=== PATIENT | female | born 1985 | race Caucasian/White ===

== ENCOUNTER 2017-06-16 19:15 | Inpatient (IN) | payer OTHER ==
[~2017-06-16] VITALS: Ht 172.7 cm; Wt 87.0 kg
[~2017-06-16 19:15] MED LIST: HYCET 7.5 MG-3473 ML PO; NUVARING VAGIN1 EACH VAGINAL; ROBAXIN-750750 MG PO; TRAMADOL HCL50 MG PO; XANAX0.5 MG PO
--- NOTE | 2017-06-17 01:20 | PR ---
[facility] [address] [facility] [place], [place] [address] Signed Progress Notes IP Datetime Report Generated by CPJostin: 06/17/2017 01:19 PROGRESS NOTES: [id number] Impression: Normal progression of labor Procedures: Sterile Vag Exam Plan: Continue present management; Anticipate Vaginal Delivery Informed Consent Obtain: Vaginal Delivery; Risks, Benefits and Alternatives Discussed VITAL SIGNS: [id number] Vital Signs: Reviewed EXAM: [id number] Dilatation: 9.0 Effacement: 100 Station: 0 Uterine Contractions: every two minutes MEMBRANES: [id number] Membrane Status: Ruptured Amniotic Fluid Color: Clear Comments: patient resting comfortably with epidural in place Fetus A: [id number] FHR Baseline: 150's Variability: Moderate 6-25bpm Accelerations: 15X15 Decelerations: Variable FHR Category: Category I Presentation: Vertex Comments on Fetus A: reactive Fetus B: [id number] Signing Physician: Karen Pham MD CC: *Electronically Signed* 06/17/17 0119 KAREN PHAM MD PATIENT NAME: JANNETH FAROOQ ANDREW PROGRESS NOTE DATE OF : 89 PHYSICIAN: KAREN PHAM MD RPT #: [id number] REPORT IS CONFIDENTIAL AND NOT TO BE RELEASED WITHOUT AUTHORIZATION
--- NOTE | 2017-06-19 09:57 | PR ---
[facility] [address] [facility] [place], [place] [address] Signed PP Progress Notes Datetime Report Generated by CPN: 06/19/2017 09:57 SUBJECTIVE: [id number] Pain: Within normal limits Nausea/Vomiting: Denies Flatus: Yes Bowel Movement: No Vital Signs: [id number] Vital Signs: Reviewed EXAM: [id number] Cardiovascular: Normal Respiratory: Normal Abdomen/Uterus: Normal Lochia: Normal Vulva/Perineum: Normal Breasts: Normal CVA Tenderness: Normal Extremities: Normal Incision: Not Applicable Progress: Normal Exam Comments: Some difficulty with latching. IMPRESSION/PLAN/PROCEDURES: [id number] Impression: Normal progression Plan: Discharge Procedures: None Progress Notes: patient doing well . anticipate d/c home today Signing Physician: Karen Pham MD CC: *Electronically Signed* 06/19/17 0957 KAREN PHAM MD PATIENT NAME: JANNETH FAROOQ PROGRESS NOTE DATE OF : 89 PHYSICIAN: KAREN PHAM MD RPT #: [id number] REPORT IS CONFIDENTIAL AND NOT TO BE RELEASED WITHOUT AUTHORIZATION
== END 2017-06-19 13:40 | disposition home or self-care (01) | DRG 775 ==
LOC: FBCO 19:15 → FBC 19:54
PROVIDERS: ADMIT Obstetrics & Gynecology
PROC: 0KQM0ZZ Repair Perineum Muscle, Open Approach (ICD-10-PCS; principal; 2017-06-17)
PROC: 10E0XZZ Delivery of Products of Conception, External Approach (ICD-10-PCS; principal; 2017-06-17)
PROC: 3E0R3BZ Introduction of Anesthetic Agent into Spinal Canal, Percutaneous Approach (ICD-10-PCS; 2017-06-17)
PROC: 00HU33Z Insertion of Infusion Device into Spinal Canal, Percutaneous Approach (ICD-10-PCS; 2017-06-17)
DX: O42.02 Full-term premature rupture of membranes, onset of labor within 24 hours of rupture (principal); Z3A.40 40 weeks gestation of pregnancy; Z37.0 Single live birth; O77.0 Labor and delivery complicated by meconium in amniotic fluid; O70.1 Second degree perineal laceration during delivery
CPT/HCPCS: 01960; 82565; 84450; 84520; 84550; 85025; J2590; J2795; J7120

== ENCOUNTER 2021-12-24 07:46 | Inpatient (IN) | payer OTHER ==
--- NOTE | 2021-12-24 15:33 | NUR ---
RT COLLECTED RAPID COVID 19 SWAB AT THIS TIME WITH NO COMPLICATIONS.
--- NOTE | 2021-12-24 16:36 | PR ---
[facility] [address] [facility] [place] [address] Signed Progress Notes IP Datetime Report Generated by CPN: 12/24/2021 16:36 PROGRESS NOTES: [id number] Impression: Normal Progression of Labor; Reassuring Heart Rate Plan: Anticipate Vaginal Delivery Informed Consent Obtain: Vaginal Delivery VITAL SIGNS: [id number] Vital Signs: Reviewed VS Notable Details: Inital BP elevated; normal BP in office today EXAM: [id number] Dilatation: 9.0 Effacement: 100 Station: 1 MEMBRANES: [id number] Comments: Called to pt room. Prolonged deceleration w/ hypotension following neuroaxial anesthesia. BPs and HR resolved w/ ephedrine and position changes. Pt now 9cm per RN. Anticipate AROM with soon. Reviewed w/ pt and all questions answered FETUS A: [id number] FHR Baseline: 130 Variability: Moderate 6-25bpm Accelerations: 15X15 Decelerations: None FHR Category: Category I Presentation: Vertex Comments on Fetus A: No evidence of metabolic acidosis FETUS B: [id number] Signing Physician: Rowdy Benson DO Copies: ~ *Electronically Signed* 12/24/21 0707 ROWDY BENSON DO PATIENT NAME: JANNETH FAROOQ PROGRESS NOTE DATE OF : 89 PHYSICIAN: ROWDY BENSON DO RPT #: [id number] REPORT IS CONFIDENTIAL AND NOT TO BE RELEASED WITHOUT AUTHORIZATION
== END 2021-12-25 18:20 | disposition home or self-care (01) | DRG 807 ==
LOC: FBCO 07:46 → EDSTATUS 15:31 → FBC 15:32
PROVIDERS: ADMIT Obstetrics & Gynecology; ATTEND Obstetrics & Gynecology
PROC: 10E0XZZ Delivery of Products of Conception, External Approach (ICD-10-PCS; principal; 2021-12-24)
PROC: 10907ZC Drainage of Amniotic Fluid, Therapeutic from Products of Conception, Via Natural or Artificial Opening (ICD-10-PCS; 2021-12-24)
PROC: 3E0R3BZ Introduction of Anesthetic Agent into Spinal Canal, Percutaneous Approach (ICD-10-PCS; 2021-12-24)
PROC: 00HU33Z Insertion of Infusion Device into Spinal Canal, Percutaneous Approach (ICD-10-PCS; 2021-12-24)
PROC: 0HQ9XZZ Repair Perineum Skin, External Approach (ICD-10-PCS; 2021-12-24)
DX: O76 Abnormality in fetal heart rate and rhythm complicating labor and delivery (principal); Z37.0 Single live birth; Z20.822 Contact with and (suspected) exposure to COVID-19; O70.0 First degree perineal laceration during delivery; O77.0 Labor and delivery complicated by meconium in amniotic fluid; Z3A.40 40 weeks gestation of pregnancy; Z79.899 Other long term (current) drug therapy; O43.123 Velamentous insertion of umbilical cord, third trimester
CPT/HCPCS: 36415; 85027; 86850; 86900; 86901; 87502; A9270; C9803; J2001; J2405; J2590; J2795; J7121; U0003